=== PATIENT | female | born 1975 | race Caucasian/White ===

== ENCOUNTER 2016-10-18 12:11 | Emergency (ER) | payer SELFPAY ==
[~2016-10-18] VITALS: Ht 170.2 cm; Wt 65.9 kg
[2016-10-18 12:13] VITALS: BP 137/87
[2016-10-18] MEDS ORDERED: KETOROLAC 30 MG/1 ML IM ONE (14:00)
[2016-10-18] MEDS ORDERED: KETOROLAC 30 MG/1 ML ONE (14:03)
[2016-10-18 14:06] LABS: HCG UR OBC PASS
== END 2016-10-18 14:45 | disposition home or self-care (01) ==
LOC: ED 14:15
DX: M54.31 Sciatica, right side (principal)
CPT/HCPCS: 81025; 96372; 99283; J1885